=== PATIENT | male | born 1980 | race Caucasian/White ===

== ENCOUNTER 2024-09-20 22:22 | Emergency (ER) | payer OTHER ==
[2024-09-20] MEDS: Ketorolac 60 MG/2 ML SDV IM ONE (23:40)
[2024-09-21] MEDS ORDERED: Naloxone 0.4 MG/ML SDV IVPUSH PRN (02:07)
[2024-09-21] MEDS ORDERED: Sodium Chloride 0.9% 10 ML Syringe FLUSH PRN (02:08)
[2024-09-21] MEDS: HYDROmorphone 0.5 MG/0.5 ML Syringe IVPUSH ONE (02:40)
[2024-09-21 02:51] LABS: BASOPHILS PERCENT AUTO 0.5 % (0.0-1.0); EOSINOPHILS ABSOLUTE AUTO 0.2 K/mm3 (0.0-0.4); EOSINOPHILS PERCENT AUTO 4.2 % (0.0-6.0); HEMATOCRIT 38.6 % (42.0-52.0); HEMOGLOBIN 13.1 gm/dl (14.0-18.0); IMMATURE GRAN ABSOLUTE AUTO 0.01 K/mm3 (0.00-0.05); IMMATURE GRAN PERCENT AUTO 0.2 % (0.0-0.4); LYMPHOCYTES PERCENT AUTO 35.4 % (24.0-44.0); MEAN CORPUSCULAR HEMOGLOBIN 28.7 pg (28.0-32.0); MEAN CORPUSCULAR HGB CONC 33.9 g/dl (32.0-36.0); MEAN CORPUSCULAR VOLUME 84.5 fl (83.0-99.0); MEAN PLATELET VOLUME 9.7 fl (9.4-12.4); MONOCYTES ABSOLUTE AUTO 0.7 K/mm3 (0.0-0.8); MONOCYTES PERCENT AUTO 11.9 % (0.0-8.0); NEUTROPHILS ABSOLUTE AUTO 2.7 K/mm3 (1.8-7.7); NEUTROPHILS PERCENT AUTO 47.8 % (41.0-71.0); PLATELET COUNT,PLT 190 K/mm3 (150-400); RED BLOOD CELL COUNT 4.57 M/mm3 (4.52-5.90); WHITE BLOOD CELL COUNT,WBC 5.54 K/mm3 (3.9-11.3)
[2024-09-21 03:21] LABS: A/G RATIO 1.1 (1-2); ALBUMIN 3.8 g/dl (3.4-5.0); ANION GAP 13.5 (5-15); BILIRUBIN TOTAL 0.5 mg/dL (0.2-1.0); CALCIUM 9.2 mg/dL (8.5-10.1); CREATININE 1.1 mg/dL (0.7-1.3); EST CRCL DRUG DOSING (CG) 102.42 mL/min; POTASSIUM,K 3.5 mEq/L (3.5-5.1); PROTEIN TOTAL,TP 7.3 g/dl (6.4-8.2)
[2024-09-21] MEDS: Iopamidol 755 Mg/ML 100 ML Bottle IVPUSH ONE (03:32)
[2024-09-21] MEDS: Sodium Chloride 0.9% 45 ML IV SCH (03:32)
[2024-09-21 05:40] VITALS: BP 134/80; PULSE 89
== END 2024-09-21 05:30 | disposition home or self-care (01) ==
LOC: JD.ED 22:22
DX: M54.16 Radiculopathy, lumbar region (principal); M25.561 Pain in right knee; M54.41 Lumbago with sciatica, right side
CPT/HCPCS: 36415; 73706; 80053; 85025; 93971; 96372; 96374; 99284; J1885; Q9967

== ENCOUNTER 2024-10-04 16:12 | Emergency (ER) | payer OTHER ==
[2024-10-04] MEDS ORDERED: Naloxone 0.4 MG/ML SDV IVPUSH PRN (17:21)
[2024-10-04] MEDS: HYDROmorphone 1 MG/ML Syringe IM ONE (17:44)
[2024-10-04] MEDS: Dexamethasone 6 MG TABLET PO ONE (17:44)
[2024-10-04] MEDS: methylPREDNISolone Sodium Succinate 125 MG/2 ML SDV IVPUSH ONE (17:45)
[2024-10-04] MEDS: methylPREDNISolone Sodium Succinate 125 MG/2 ML SDV IM ONE (17:45)
[2024-10-04 18:24] VITALS: BP 127/83; PULSE 95
[2024-10-04] MEDS: diazePAM 5 MG Tab PO ONE (18:26)
== END 2024-10-04 18:30 | disposition home or self-care (01) ==
LOC: JD.ED 16:12
DX: M51.26 Other intervertebral disc displacement, lumbar region (principal); Z79.899 Other long term (current) drug therapy; Z90.49 Acquired absence of other specified parts of digestive tract
CPT/HCPCS: 96372; 99283; A9270; J1171; J2919; J8540

== ENCOUNTER 2024-10-06 21:17 | Emergency (ER) | payer OTHER ==
[2024-10-06 21:24] VITALS: BP 140/92; PULSE 86
[2024-10-06] MEDS: Acetaminophen/oxyCODONE 325-5 MG Tab PO ONE (21:44)
[2024-10-06] MEDS: diazePAM 5 MG Tab PO ONE (22:26)
== END 2024-10-06 23:20 ==
LOC: JD.ED 21:17
DX: M51.16 Intervertebral disc disorders with radiculopathy, lumbar region (principal); Z79.899 Other long term (current) drug therapy; Z90.49 Acquired absence of other specified parts of digestive tract
CPT/HCPCS: 99284; A9270